=== PATIENT | male | born 1965 | race Caucasian/White ===

== ENCOUNTER 2023-01-02 09:31 | Emergency (ER) | payer MEDICARE, OTHER ==
[2023-01-02 09:51] VITALS: RESP 18
[2023-01-02] MEDS ORDERED: SODIUM CHLORIDE 0.9% 1,000 ML IV STA (10:14)
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
[2023-01-02 10:34] LABS: Basophils % (A) 0 %; Eosinophils # (A) 0.5 k/uL (0-0.7); Eosinophils % (A) 4 %; HCT 36.4 % (39.0-53.0); HGB 12.1 gm/dL (13.0-17.5); Lymphocytes # (A) 1.9 k/uL (1.0-4.8); Lymphocytes % (A) 14 %; MCH 29.8 pg (25.0-35.0); MCHC 33.4 g/dL (31.0-37.0); MCV 89.3 fL (80.0-100.0); Mean Platelet Volume 7.2; Monocytes # (A) 0.9 k/uL (0-1.0); Monocytes % (A) 6 %; Neutrophils % (A) 73 %; Platelet Count 283 k/uL (150-450); RBC 4.08 m/uL (4.30-5.90); WBC 13.6 k/uL (3.8-10.6)
[2023-01-02 10:42] LABS: Appearance,Urine Clear (Clear); Bilirubin,Urine Negative (Negative); Blood,Urine Negative (Negative); Color,Urine Colorless; Glucose,Urine (UA) Negative (Negative); Ketones,Urine Negative (Negative); Leukocyte Esterase,Urine Negative (Negative); Nitrite,Urine Negative (Negative); Protein,Urine Negative (Negative); Specific Gravity,Urine 1.005 (1.001-1.035); Urobilinogen,Urine <2.0 mg/dL (<2.0)
[2023-01-02 10:46] LABS: ALT 24 U/L (4-49); AST 23 U/L (17-59); African American GFR (CKD) >90 (>60 ml/min/1.73 sqM); Albumin 3.7 g/dL (3.5-5.0); Alkaline Phosphatase 64 U/L (38-126); Anion Gap 6 mmol/L; Blood Urea Nitrogen 12 mg/dL (9-20); Calcium 8.8 mg/dL (8.4-10.2); Carbon Dioxide 26 mmol/L (22-30); Chloride 103 mmol/L (98-107); Glucose 81 mg/dL (74-99); Non-African American GFR(CKD) >90 (>60 ml/min/1.73 sqM); Potassium 4.1 mmol/L (3.5-5.1); Sodium 135 mmol/L (137-145); Total Bilirubin 0.2 mg/dL (0.2-1.3); Total Protein 6.5 g/dL (6.3-8.2)
--- NOTE | 2023-01-02 10:57 | XR ---
EXAMINATION TYPE: XR chest 2V DATE OF EXAM: 01/02/2023 10:53 AM COMPARISON: None TECHNIQUE: XR chest 2V Frontal and lateral views of the chest. CLINICAL INDICATION:Male, 57 years old with history of cough; FINDINGS: Lungs/Pleura: There is no evidence of pleural effusion, focal consolidation, or pneumothorax. Pulmonary vascularity: Unremarkable. Heart/mediastinum: Cardiomediastinal silhouette is unremarkable. Musculoskeletal: No acute osseous pathology. IMPRESSION: No acute cardiopulmonary disease/process.
[2023-01-02 12:47] VITALS: BP 133/86; PULSE 82; TEMP 98.2
== END 2023-01-02 12:44 | disposition home or self-care (01) ==
LOC: EC 09:31
DX: J06.9 Acute upper respiratory infection, unspecified (principal); R42 Dizziness and giddiness; J44.9 Chronic obstructive pulmonary disease, unspecified; I10 Essential (primary) hypertension; F17.200 Nicotine dependence, unspecified, uncomplicated; F14.90 Cocaine use, unspecified, uncomplicated; Z20.822 Contact with and (suspected) exposure to COVID-19
CPT/HCPCS: 36415; 71046; 80053; 81003; 84484; 85025; 87636; 93005; 96360; 96361; 99285

== ENCOUNTER 2023-01-04 21:23 | Emergency (ER) | payer MEDICARE, OTHER ==
[2023-01-04] MEDS ORDERED: ASPIRIN 81 MG PO STA (21:42)
[2023-01-04 21:45] VITALS: TEMP 98.7
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
[2023-01-04 22:07] LABS: Basophils # (A) 0.1 k/uL (0-0.2); Basophils % (A) 1 %; Eosinophils # (A) 0.5 k/uL (0-0.7); Eosinophils % (A) 4 %; HCT 35.4 % (39.0-53.0); HGB 11.8 gm/dL (13.0-17.5); Lymphocytes # (A) 3.2 k/uL (1.0-4.8); Lymphocytes % (A) 28 %; MCH 30.2 pg (25.0-35.0); MCHC 33.5 g/dL (31.0-37.0); MCV 90.4 fL (80.0-100.0); Mean Platelet Volume 6.8; Monocytes # (A) 0.8 k/uL (0-1.0); Monocytes % (A) 7 %; Neutrophils # (A) 6.7 k/uL (1.3-7.7); Neutrophils % (A) 58 %; Platelet Count 282 k/uL (150-450); RBC 3.91 m/uL (4.30-5.90); RDW 13.8 % (11.5-15.5); WBC 11.5 k/uL (3.8-10.6)
[2023-01-04 22:19] LABS: INR 0.9 (<1.2); Partial Thromboplastin Time 23.8 sec (22.0-30.0); Prothrombin Time 10.1 sec (10.0-12.5)
[2023-01-04 22:27] LABS: ALT 27 U/L (4-49); AST 26 U/L (17-59); African American GFR (CKD) >90 (>60 ml/min/1.73 sqM); Albumin 3.8 g/dL (3.5-5.0); Alkaline Phosphatase 66 U/L (38-126); Amylase 190 U/L (30-110); Anion Gap 10 mmol/L; Blood Urea Nitrogen 17 mg/dL (9-20); Calcium 8.8 mg/dL (8.4-10.2); Carbon Dioxide 22 mmol/L (22-30); Chloride 102 mmol/L (98-107); Glucose 90 mg/dL (74-99); Lipase 1809 U/L (23-300); Magnesium 1.9 mg/dL (1.6-2.3); Non-African American GFR(CKD) >90 (>60 ml/min/1.73 sqM); Potassium 4.2 mmol/L (3.5-5.1); Sodium 134 mmol/L (137-145); Total Bilirubin 0.2 mg/dL (0.2-1.3); Total Protein 6.6 g/dL (6.3-8.2)
--- NOTE | 2023-01-04 23:30 | XR ---
EXAM: XR Chest, 2 Views CLINICAL HISTORY: ITS.REASON XR Reason: Chest Pain TECHNIQUE: Frontal and lateral views of the chest. COMPARISON: 01/02/2023. FINDINGS: Lungs: Unremarkable. No consolidative changes. Pleural space: Unremarkable. No pneumothorax. No pleural effusions. Heart: Mild cardiomegaly. Mediastinum: Unremarkable. Bones/joints: Osseous structures and soft tissues are unremarkable. Mild degenerative disc disease of the thoracic spine and gentle levoscoliosis. IMPRESSION: 1. Mild cardiomegaly. 2. No active disease.
--- NOTE | 2023-01-05 00:32 | US ---
EXAM: US Abdomen Complete CLINICAL HISTORY: ITS.REASON US Reason: attention RUQ TECHNIQUE: Real-time ultrasound of the abdomen with image documentation. COMPARISON: No previous studies. FINDINGS: Limitations: Limited evaluation due to bowel gas. Liver: The liver measures 18.7 cm. No intrahepatic bile duct dilation. Gallbladder: Gallbladder wall measures 0.22 cm. Negative ultrasound Daniel sign. No gallstones. Common bile duct: Common bile duct measures 0.3 cm. No stones. No dilation. Pancreas: Unremarkable as visualized. Kidneys: Right kidney measures 10.2 x 4.7 x 4 cm without renal calculus or hydronephrosis. A 1.7 x 3.8 x 2.7 cm region within the right kidney of uncertain etiology, possibly prominent column of Jean. Spleen: Unremarkable. No splenomegaly. Aorta: Unremarkable. No abdominal aortic aneurysm. Inferior vena cava: Unremarkable. IMPRESSION: 1. Presumed prominent: Jean within the right kidney. CT imaging is advised to confirm this finding. 2. Limited evaluation due to bowel gas. 3. Negative ultrasound Daniel sign. 4. Hepatomegaly. 5. Fatty liver.
[2023-01-05 02:46] VITALS: RESP 18
[2023-01-05 03:33] VITALS: BP 148/75; PULSE 55
== END 2023-01-05 03:50 | disposition home or self-care (01) ==
LOC: SUPCPDRO 21:23 → EC 21:23
DX: R07.89 Other chest pain (principal); K85.90 Acute pancreatitis without necrosis or infection, unspecified; J44.9 Chronic obstructive pulmonary disease, unspecified; I10 Essential (primary) hypertension; Z88.8 Allergy status to other drugs, medicaments and biological substances; F17.200 Nicotine dependence, unspecified, uncomplicated; Z79.82 Long term (current) use of aspirin; Z79.899 Other long term (current) drug therapy
CPT/HCPCS: 36415; 71046; 76705; 80053; 82150; 83690; 83735; 84484; 85025; 85610; 85730; 93005; 99285